=== PATIENT | male | born 1950 | race African-American/Black ===

== ENCOUNTER 2023-06-02 02:06 | Inpatient (IN) | payer MEDICARE ==
[2023-06-02] MEDS ORDERED: Metoprolol Tartrate 5 MG (5 mL) VIAL ONE (03:07)
[2023-06-02] MEDS ORDERED: Furosemide 40 MG (4 mL) VIAL ONE ×2 (03:07→13:43)
[2023-06-02] MEDS ORDERED: Thiamine HCl 200 MG/2 ML VIAL ONE (03:07)
[2023-06-02 03:42] LABS: #Monocytes 0.5 thou/uL (0.11-0.59); #Neutrophils 3.4 thou/uL (1.40-6.50); %Basophils 0.4 % (0.0-1.0); %Eosinophils 0.4 % (0.0-10.0); %Lymphocytes 16.1 % (21.0-51.0); %Monocytes 9.9 % (0.0-10.0); Hematocrit 46.6 % (42.0-52.0); Hemoglobin 14.8 g/dL (14.0-18.0); Mean Corpuscular HGB CONC 31.8 g/dL (32.0-36.0); Mean Corpuscular Hemoglobin 30.4 pg (27.0-31.0); Mean Corpuscular Volume 95.7 fl (78.0-98.0); Mean Platelet Volume 10.3 fL (7.4-10.4); Platelet Count 146 10x3/uL (130-400); Red Blood Cell (RBC) Count 4.87 mill/uL (4.70-6.10); White Blood Cell (WBC) Count 4.7 10x3/uL (4.8-10.8)
[2023-06-02] MEDS ORDERED: Magnesium 2 GM/50 ML BAG (IN WATER) ONE (04:04)
[2023-06-02 04:07] LABS: ALT (SGPT) 44 U/L (8-55); AST (SGOT) 29 U/L (5-34); Albumin 3.3 g/dL (3.4-4.8); Alkaline Phosphatase 77 U/L (40-110); Anion Gap 11 mmol/L (10-20); BUN (Urea Nitrogen) 25 mg/dL (8.4-25.7); Bilirubin, Total 0.6 mg/dL (0.2-1.2); Calc. Creatinine Clearance 0 mL/min (70-130); Calcium 8.6 mg/dL (7.8-10.44); Carbon Dioxide 30 mmol/L (23-31); Chloride 108 mmol/L (98-107); Estimated GFR 68; Globulin 2.6 g/dL (2.4-3.5); Glucose 85 mg/dL (83-110); Lipase 14 U/L (8-78); Protein, Total 5.9 g/dL (5.8-8.1); Sodium 145 mmol/L (136-145)
[2023-06-02 04:09] LABS: Troponin I 0.132 ng/mL (< 0.028)
[2023-06-02] MEDS ORDERED: Enoxaparin 60 MG (0.6 mL) SYRINGE ONE (05:05)
[2023-06-02] MEDS ORDERED: Ondansetron ODT 4 MG TAB SL PRN (07:30)
[2023-06-02] MEDS ORDERED: Ondansetron PF 4 MG/2 ML Vial IVP PRN (07:30)
[2023-06-02 07:55] LABS: Troponin I 0.131 ng/mL (< 0.028)
[2023-06-02] MEDS ORDERED: Acetaminophen 325 MG TAB PO PRN (08:27)
[2023-06-02] MEDS ORDERED: Senokot S 8.6-50 MG TAB PO PRN (08:27)
[2023-06-02] MEDS ORDERED: Electrolyte Replacement Protocol 1 EACH FS SCH (08:30)
[2023-06-02] MEDS ORDERED: Aspirin 325 MG TAB ONE (08:50)
[2023-06-02] MEDS: Famotidine 20 MG TAB PO SCH (08:50)
[2023-06-02] MEDS: Multivit, Therapeutic 1 TAB PO SCH (08:50)
[2023-06-02] MEDS: Folic Acid 1 MG TAB PO SCH (08:50)
[2023-06-02] MEDS ORDERED: Multivit, Therapeutic 1 TAB ONE (08:51)
[2023-06-02] MEDS ORDERED: Famotidine 20 MG TAB ONE (08:51)
[2023-06-02] MEDS ORDERED: Folic Acid 1 MG TAB ONE (08:51)
[2023-06-02] MEDS: Aspirin 325 MG TAB PO SCH (09:01)
[2023-06-02 10:10] LABS: Troponin I 0.133 ng/mL (< 0.028)
[2023-06-02] MEDS: Spironolactone 25 MG TAB PO SCH (11:09)
[2023-06-02] MEDS: Furosemide 40 MG (4 mL) VIAL SLOW IVP SCH (13:49)
[2023-06-02 16:18] VITALS: BMI 18.1
[2023-06-03 04:38] LABS: #Monocytes 0.5 thou/uL (0.11-0.59); #Neutrophils 2.9 thou/uL (1.40-6.50); %Basophils 0.5 % (0.0-1.0); %Eosinophils 0.2 % (0.0-10.0); %Lymphocytes 17.2 % (21.0-51.0); %Monocytes 11.4 % (0.0-10.0); %Neutrophils 70.5 % (42.0-75.0); Hematocrit 44.8 % (42.0-52.0); Hemoglobin 14.3 g/dL (14.0-18.0); Mean Corpuscular HGB CONC 31.9 g/dL (32.0-36.0); Mean Corpuscular Hemoglobin 30.4 pg (27.0-31.0); Mean Corpuscular Volume 95.1 fl (78.0-98.0); Mean Platelet Volume 10.5 fL (7.4-10.4); Platelet Count 140 10x3/uL (130-400); RBC Distribution Width 13.6 % (11.5-14.5); Red Blood Cell (RBC) Count 4.71 mill/uL (4.70-6.10); White Blood Cell (WBC) Count 4.1 10x3/uL (4.8-10.8)
[2023-06-03 04:59] LABS: ALT (SGPT) 36 U/L (8-55); AST (SGOT) 24 U/L (5-34); Albumin 3.2 g/dL (3.4-4.8); Alkaline Phosphatase 73 U/L (40-110); Anion Gap 16 mmol/L (10-20); BUN (Urea Nitrogen) 28 mg/dL (8.4-25.7); Bilirubin, Total 0.6 mg/dL (0.2-1.2); Calc. Creatinine Clearance 41 mL/min (70-130); Calcium 8.8 mg/dL (7.8-10.44); Carbon Dioxide 32 mmol/L (23-31); Chloride 101 mmol/L (98-107); Estimated GFR 57; Globulin 2.7 g/dL (2.4-3.5); Glucose 92 mg/dL (83-110); Magnesium 3.6 mg/dL (1.6-2.6); Potassium 4.1 mmol/L (3.5-5.1); Protein, Total 5.9 g/dL (5.8-8.1); Sodium 145 mmol/L (136-145)
[2023-06-03] MEDS: Furosemide 40 MG TAB PO SCH (08:24)
[2023-06-03] MEDS: Spironolactone 25 MG TAB PO SCH (08:25)
[2023-06-03] MEDS: FLU VACC QS2023(65UP)/MF59C/PF 60 MCG/0.5 ML SYRINGE IM ONE (08:26)
[2023-06-03] MEDS: Thiamine 100 MG TAB PO SCH (08:27)
[2023-06-03] MEDS ORDERED: Communication Order-Pharmacy FS SCH (18:00)
[2023-06-04 04:34] LABS: #Monocytes 0.5 thou/uL (0.11-0.59); #Neutrophils 2.5 thou/uL (1.40-6.50); %Basophils 0.3 % (0.0-1.0); %Eosinophils 0.8 % (0.0-10.0); %Lymphocytes 20.6 % (21.0-51.0); %Monocytes 12.2 % (0.0-10.0); %Neutrophils 65.8 % (42.0-75.0); Hematocrit 42.3 % (42.0-52.0); Hemoglobin 13.5 g/dL (14.0-18.0); Mean Corpuscular HGB CONC 31.9 g/dL (32.0-36.0); Mean Corpuscular Hemoglobin 30.1 pg (27.0-31.0); Mean Corpuscular Volume 94.2 fl (78.0-98.0); Mean Platelet Volume 10.3 fL (7.4-10.4); Platelet Count 137 10x3/uL (130-400); RBC Distribution Width 13.4 % (11.5-14.5); Red Blood Cell (RBC) Count 4.49 mill/uL (4.70-6.10); White Blood Cell (WBC) Count 3.8 10x3/uL (4.8-10.8)
[2023-06-04 04:53] LABS: Anion Gap 9 mmol/L (10-20); BUN (Urea Nitrogen) 24 mg/dL (8.4-25.7); Calc. Creatinine Clearance 46 mL/min (70-130); Calcium 8.7 mg/dL (7.8-10.44); Carbon Dioxide 35 mmol/L (23-31); Chloride 100 mmol/L (98-107); Estimated GFR 65; Glucose 85 mg/dL (83-110); Potassium 4.3 mmol/L (3.5-5.1); Sodium 140 mmol/L (136-145)
[2023-06-04] MEDS: Aspirin 81 mg Enteric Coated Tablet PO SCH (08:28)
[2023-06-04] MEDS ORDERED: Verapamil 5 MG/2 ML VIAL ONE (11:56)
[2023-06-04] MEDS ORDERED: Nitroglycerin 50 MG/250 ML BOT 250 ML ONE (11:56)
[2023-06-04] MEDS ORDERED: Heparin 10,000 UNITS/ 10 ML VIAL ONE (11:56)
[2023-06-04] MEDS ORDERED: Midazolam HCl 2 mg/2 ml Vial ONE (12:46)
[2023-06-04] MEDS ORDERED: Nitroglycerin 0.4 MG TAB (25 Tab Bottle) SL PRN (16:15)
[2023-06-04] MEDS ORDERED: Acetaminophen/Codeine 30-300mg Tablet PO PRN ×2 (16:15)
[2023-06-04] MEDS ORDERED: Sodium Chloride 0.9% 200 ML IV PRN (16:15)
[2023-06-04] MEDS: Sacubitril 24MG/Valsartan 26 MG TAB PO SCH (21:03)
[2023-06-05 05:12] LABS: #Monocytes 0.5 thou/uL (0.11-0.59); #Neutrophils 2.5 thou/uL (1.40-6.50); %Basophils 0.2 % (0.0-1.0); %Lymphocytes 23.2 % (21.0-51.0); %Monocytes 12.8 % (0.0-10.0); %Neutrophils 62.6 % (42.0-75.0); Hematocrit 45.7 % (42.0-52.0); Hemoglobin 14.6 g/dL (14.0-18.0); Mean Corpuscular HGB CONC 31.9 g/dL (32.0-36.0); Mean Corpuscular Hemoglobin 30.5 pg (27.0-31.0); Mean Corpuscular Volume 95.6 fl (78.0-98.0); Mean Platelet Volume 10.3 fL (7.4-10.4); Platelet Count 145 10x3/uL (130-400); RBC Distribution Width 13.3 % (11.5-14.5); Red Blood Cell (RBC) Count 4.78 mill/uL (4.70-6.10); White Blood Cell (WBC) Count 4.1 10x3/uL (4.8-10.8)
[2023-06-05 05:41] LABS: Anion Gap 13 mmol/L (10-20); BUN (Urea Nitrogen) 26 mg/dL (8.4-25.7); Calc. Creatinine Clearance 41 mL/min (70-130); Calcium 8.7 mg/dL (7.8-10.44); Carbon Dioxide 34 mmol/L (23-31); Cardiac Risk 2.9 (Less than 4.5); Chloride 97 mmol/L (98-107); Cholesterol 122 mg/dl (< 200 Desired); Estimated GFR 58; Glucose 89 mg/dL (83-110); HDL Cholesterol 42 mg/dL (>60 Neg Risk); LDL Cholesterol, Calculated 69 mg/dL; Potassium 4.5 mmol/L (3.5-5.1); Sodium 139 mmol/L (136-145); Triglycerides 55 mg/dL (Less than 150)
[2023-06-05] MEDS ORDERED: Ipratropium/Albuterol 3 ML NEB NEB PRN (11:17)
[2023-06-06 04:48] LABS: %Lymphocytes 24.9 % (21.0-51.0); %Monocytes 10.8 % (0.0-10.0); %Neutrophils 62.4 % (42.0-75.0); Hematocrit 47.7 % (42.0-52.0); Hemoglobin 15.4 g/dL (14.0-18.0); Mean Corpuscular HGB CONC 32.3 g/dL (32.0-36.0); Mean Corpuscular Hemoglobin 30.1 pg (27.0-31.0); Mean Corpuscular Volume 93.3 fl (78.0-98.0); Mean Platelet Volume 10.6 fL (7.4-10.4); Platelet Count 151 10x3/uL (130-400); RBC Distribution Width 13.2 % (11.5-14.5); Red Blood Cell (RBC) Count 5.11 mill/uL (4.70-6.10); White Blood Cell (WBC) Count 3.7 10x3/uL (4.8-10.8)
[2023-06-06 04:49] LABS: #Monocytes 0.4 thou/uL (0.11-0.59); #Neutrophils 2.3 thou/uL (1.40-6.50); %Basophils 0.5 % (0.0-1.0); %Eosinophils 1.1 % (0.0-10.0)
[2023-06-06 05:38] LABS: Anion Gap 13 mmol/L (10-20); BUN (Urea Nitrogen) 37 mg/dL (8.4-25.7); Calc. Creatinine Clearance 39 mL/min (70-130); Calcium 8.8 mg/dL (7.8-10.44); Carbon Dioxide 35 mmol/L (23-31); Chloride 96 mmol/L (98-107); Estimated GFR 58; Glucose 99 mg/dL (83-110); Potassium 4.9 mmol/L (3.5-5.1); Sodium 139 mmol/L (136-145)
[2023-06-06] MEDS: Enoxaparin 30 MG (0.3 mL) SYRINGE SC SCH (08:55)
[2023-06-06 12:38] VITALS: BP 121/51; TEMP 97.6
== END 2023-06-06 13:37 | disposition home health service (06) | DRG 286 ==
LOC: ERS 02:06 → ERHOLD 05:35 → 2SW 14:11
PROVIDERS: ADMIT Student in an Organized Health Care Education/Training Program; ATTEND Internal Medicine
PROC: B2111ZZ Fluoroscopy of Multiple Coronary Arteries using Low Osmolar Contrast (ICD-10-PCS; principal; 2023-06-04)
PROC: 4A023N7 Measurement of Cardiac Sampling and Pressure, Left Heart, Percutaneous Approach (ICD-10-PCS; 2023-06-04)
PROC: B2151ZZ Fluoroscopy of Left Heart using Low Osmolar Contrast (ICD-10-PCS; 2023-06-04)
DX: I11.0 Hypertensive heart disease with heart failure (principal); I50.23 Acute on chronic systolic (congestive) heart failure; J96.01 Acute respiratory failure with hypoxia; E44.0 Moderate protein-calorie malnutrition; Z68.1 Body mass index [BMI] 19.9 or less, adult; J44.9 Chronic obstructive pulmonary disease, unspecified; J43.9 Emphysema, unspecified; F17.210 Nicotine dependence, cigarettes, uncomplicated; I48.91 Unspecified atrial fibrillation; F10.10 Alcohol abuse, uncomplicated; Z71.6 Tobacco abuse counseling; Z71.41 Alcohol abuse counseling and surveillance of alcoholic
CPT/HCPCS: 36415; 71045; 71275; 74230; 80048; 80053; 80061; 83690; 83735; 83880; 84443; 84484; 85025; 85379; 93005; 93306; 93458; 93798; 94760; 96365; 96367; 96372; 96375; 97139; 99152; C1769; C1894; J1644; J1650; J1940; J2250; J3411; J3475